=== PATIENT | female | born 1945 | race Caucasian/White ===

== ENCOUNTER 2020-09-15 13:50 | Outpatient (CLI) | payer MEDICARE, BC ==
[~2020-09-15] VITALS: Ht 157.5 cm; Wt 55.3 kg
[2020-09-15 14:31] LABS: TOTAL HEMOGLOBIN 9.8 G/dl (12.0-16.0)
[2020-09-15] MEDS ORDERED: albuterol 2.5 MG/3 ML nebule NEB ONE (15:20)
== END 2020-09-15 23:59 | disposition home or self-care (01) ==
LOC: RT 13:50
PROVIDERS: ATTEND Internal Medicine Pulmonary Disease
DX: R94.2 Abnormal results of pulmonary function studies (principal); J47.9 Bronchiectasis, uncomplicated; J84.112 Idiopathic pulmonary fibrosis
CPT/HCPCS: 85018; 94060; 94727; 94729; 94760

== ENCOUNTER 2021-08-08 06:27 | Day surgery (SDC) | payer MEDICARE, BC ==
[2021-07-29 15:27] LABS: BASOPHILS # (AUTO) 0.1 X10'3 (0-0.2); BASOPHILS % (AUTO) 0.7 % (0-1); EOSINOPHILS # (AUTO) 0.4 X10'3 (0-0.9); EOSINOPHILS % (AUTO) 4.9 % (0-6); LYMPHOCYTES # (AUTO) 1.4 X10'3 (1.1-4.8); LYMPHOCYTES % (AUTO) 15.9 % (21-51); MEAN CORPUSCULAR HEMOGLOBIN 29.7 PG (27.0-31.0); MEAN CORPUSCULAR HGB CONC 33.8 g/dL (33.0-36.5); MEAN CORPUSCULAR VOLUME 88.1 FL (78-98); MEAN PLATELET VOLUME 7.2 FL (7.4-10.4); MONOCYTES # (AUTO) 0.8 X10'3 (0-0.9); NEUTROPHILS # (AUTO) 5.9 X10'3 (1.8-7.7); NEUTROPHILS % (AUTO) 69.5 % (42-75); PRE OP HEMATOCRIT 37.7 % (35.0-45.0); PRE OP HEMOGLOBIN 12.7 g/dL (12.0-16.0); PRE OP PLATELET COUNT 265 X10'3 (140-440); RED BLOOD COUNT 4.28 X10'6 (4.20-5.60); RED CELL DISTRIBUTION WIDTH 14.7 % (11.5-14.5)
[2021-07-29 15:36] LABS: ALBUMIN 3.6 G/DL (3.4-5.0); ALKALINE PHOSPHATASE 114 IU/L (46-116); BLOOD UREA NITROGEN 22 MG/DL (7-18); BUN/CREATININE RATIO 22.7 (6.6-38.0); CALCIUM 9.2 MG/DL (8.5-10.1); CHLORIDE 104 MMOL/L (99-107); CREATININE 0.97 MG/DL (0.40-0.90); PRE OP ALT 15 U/L (30-65); PRE OP ANION GAP 7 (8-16); PRE OP AST 20 U/L (10-37); PRE OP BILIRUB, TOTAL 0.3 MG/DL (0.0-1.0); PRE OP GLUCOSE 109 MG/DL (70-104); PRE OP SODIUM 142 MMOL/L (135-145); TOTAL CARBON DIOXIDE 31.1 MMOL/L (24-32); TOTAL PROTEIN 7.3 G/DL (6.4-8.2); eGFR 56 ML/MIN
[~2021-08-08] VITALS: Ht 162.6 cm; Wt 62.0 kg
[2021-08-08] VITALS (7 sets, daily range): BP systolic 111–123; BP diastolic 62–82
[~2021-08-08 06:27] MED LIST: ALBU8.5H17 INH; DOCU100C40 PO; DYR50C PO; FENT-17 TOP; FLUT1BLS3 INH; FOLI0.4T14 PO; GABA-530 PO; GUAI600T45 PO; HYDR200T80 PO; IRON15TA3 PO; PANT-47 PO; POTA10TA36 PO; SENN8.6T19 PO; VENL75TA4 PO; albuterol 2.5 MG/3 ML nebule NEB PRN; cefazolin/dext.iso 2gm/100ml IV ONE; famotidine 20mg tablet PO ONE; ringers solution, lacted 1,000 ML IV SCH
[2021-08-08] MEDS ORDERED: BUPIVAcaine/PF 2.5mg/ml (0.25%) 10ml vial ONE (06:40)
[2021-08-08] MEDS ORDERED: LIDOcaine 0.5% (5mg/ml) 50ml vial ONE (08:43)
[2021-08-08] MEDS ORDERED: CALC300T4 PO (08:55)
[2021-08-08] MEDS ORDERED: fentaNYL/PF 50MCG/1 ML 2ML syringe ONE (09:34)
[2021-08-08] MEDS ORDERED: midazolam 1 mg/ML 2ml injection ONE (09:35)
[2021-08-08] MEDS ORDERED: propofol inj 20 ML IV ONE (10:36)
--- NOTE | 2021-08-08 10:40 | NUR ---
Received from OR via , accompanied by Anesthesiologist and report given by Anesthesiolgist. PATIENT WAKING UP, DENIES PAIN, V/S WNL, NEUROVASCULAR CHECKS INTACT, DRESSING TO KEN JOSHI, 2OG JUSTIN,.
--- NOTE | 2021-08-08 11:20 | NUR ---
PATIENT A&OX4, DENIES PAIN, V/S WNL, NEUROVASCULAR CHECKS INTACT, DRESSING TO RUE CDI, 2OG DAYANE D/C,. I HAVE REVIEWED D/C INSTRUCTIONS WITH PATIENT AND AND THEY HAVE VERBALIZED UNDERSTANDING. PATIENT D/C HOME WITH ALL BELONGINGS AND GAVE TRANSPORT.
[2021-08-08] MEDS ORDERED: proCHLORperazine 10 MG/2 ml inj IV PRN (11:45)
[2021-08-08] MEDS ORDERED: morphine 2 MG/ML inj. syringe IV PRN (11:45)
[2021-08-08] MEDS ORDERED: HYDROmorphone/PF 0.2 MG/ML SYRINGE IV PRN (11:45)
[2021-08-08] MEDS ORDERED: meperidine/PF 25mg/ml syringe IV PRN (11:45)
[2021-08-08] MEDS ORDERED: acetaminophen 1,000mg/100ml IV 100 ML IV PRN (11:45)
[2021-08-08] MEDS ORDERED: ondansetron/PF 4mg/2ml inj IV PRN (11:45)
[2021-08-08] MEDS ORDERED: ringers solution, lacted 1,000 ML IV SCH (11:45)
== END 2021-08-08 11:20 | disposition home or self-care (01) ==
LOC: PAS 06:27
PROVIDERS: ATTEND Orthopaedic Surgery Hand Surgery
DX: M06.841 Other specified rheumatoid arthritis, right hand (principal); M72.0 Palmar fascial fibromatosis [Dupuytren]; F41.9 Anxiety disorder, unspecified; D64.9 Anemia, unspecified; K21.9 Gastro-esophageal reflux disease without esophagitis; Z20.822 Contact with and (suspected) exposure to COVID-19; Z79.899 Other long term (current) drug therapy; Z96.661 Presence of right artificial ankle joint; Z98.890 Other specified postprocedural states; Z85.3 Personal history of malignant neoplasm of breast
CPT/HCPCS: 26121; 26531; 36415; 80053; 82948; 85025; 93005; J2001; J2250; J2704; J3010; J3490; J7120; L8630; U0003; U0005; Z7506; Z7508; Z7512; A4215; A4618; A7000

== ENCOUNTER 2022-04-07 07:32 | Inpatient (IN) | payer MEDICARE, BC ==
[2022-03-31 16:25] LABS: CLARITY,URINE CLEAR (Clear); COLOR,URINE YELLOW (Yellow); GLUCOSE, URINE NEGATIVE (Neg); KETONES,URINE NEGATIVE (Neg); LEUKOCYTE ESTERASE ,URINE NEGATIVE (Neg); NITRITES, URINE NEGATIVE (Neg); OCCULT BLOOD,URINE NEGATIVE (Neg); PH,URINE 5.5 (4.8-8.0); PROTEIN,URINE NEGATIVE (Neg); UROBILINOGEN,URINE 0.2 E.U/dL (0.2-1.0)
[2022-03-31 16:26] LABS: UA COLLECTION TYPE NON-SPECIFIED
[2022-03-31 16:28] LABS: BASOPHILS # (AUTO) 0.1 X10'3 (0-0.2); BASOPHILS % (AUTO) 0.7 % (0-1); EOSINOPHILS # (AUTO) 0.5 X10'3 (0-0.9); EOSINOPHILS % (AUTO) 5.3 % (0-6); LYMPHOCYTES # (AUTO) 0.9 X10'3 (1.1-4.8); LYMPHOCYTES % (AUTO) 10.9 % (21-51); MEAN CORPUSCULAR HEMOGLOBIN 28.2 PG (27.0-31.0); MEAN CORPUSCULAR HGB CONC 32.3 g/dL (33.0-36.5); MEAN CORPUSCULAR VOLUME 87.3 FL (78-98); MEAN PLATELET VOLUME 7.4 FL (7.4-10.4); MONOCYTES # (AUTO) 0.6 X10'3 (0-0.9); MONOCYTES % (AUTO) 6.7 % (2-12); NEUTROPHILS # (AUTO) 6.6 X10'3 (1.8-7.7); NEUTROPHILS % (AUTO) 76.4 % (42-75); PRE OP HEMATOCRIT 39.3 % (35.0-45.0); PRE OP HEMOGLOBIN 12.7 g/dL (12.0-16.0); PRE OP PLATELET COUNT 247 X10'3 (140-440); RED CELL DISTRIBUTION WIDTH 14.4 % (11.5-14.5)
[2022-03-31 16:42] LABS: ALBUMIN 3.3 G/DL (3.4-5.0); ALBUMIN/GLOBULIN RATIO 0.8 (1.1-1.5); ALKALINE PHOSPHATASE 78 IU/L (46-116); BLOOD UREA NITROGEN 18 MG/DL (7-18); BUN/CREATININE RATIO 29.5 (6.6-38.0); CALCIUM 8.7 MG/DL (8.5-10.1); CHLORIDE 105 MMOL/L (99-107); CREATININE 0.61 MG/DL (0.40-0.90); PRE OP ALT 14 U/L (30-65); PRE OP ANION GAP 6 (8-16); PRE OP AST 22 U/L (10-37); PRE OP BILIRUB, TOTAL 0.3 MG/DL (0.0-1.0); PRE OP GLUCOSE 103 MG/DL (70-104); PRE OP POTASSIUM 3.8 MMOL/L (3.4-5.1); PRE OP SODIUM 141 MMOL/L (135-145); TOTAL CARBON DIOXIDE 29.7 MMOL/L (24-32); TOTAL PROTEIN 7.4 G/DL (6.4-8.2); eGFR > 90 ML/MIN
[~2022-04-07] VITALS: Ht 162.6 cm; Wt 59.6 kg
[2022-04-07] VITALS (29 sets, daily range): BP systolic 103–144; BP diastolic 53–74
[~2022-04-07 07:32] MED LIST changes: +ASPI-1071 PO; +ATOR20TA66 PO; +CALC650T22 PO; +COR3.125T PO; +FERR-28 PO; +HYDR-3973 PO; -IRON15TA3 PO; -POTA10TA36 PO; +RIT100I INJ; +albuterol 2.5 MG/3 ML nebule NEB ONE; -albuterol 2.5 MG/3 ML nebule NEB PRN; +ceFAZolin 1,000 MG in NS 50ML IVPB IV ONE; -cefazolin/dext.iso 2gm/100ml IV ONE
[2022-04-07] MEDS ORDERED: ceFAZolin 2gm in dextrose, iso 50 ML IV ONE (09:05)
[2022-04-07] MEDS ORDERED: vancomycin/NS 1 GM ADD-VANTAGE 250 ML IV ONE (09:10)
[2022-04-07] MEDS ORDERED: albuterol 2.5 MG/3 ML nebule NEB ONE (09:25)
[2022-04-07] MEDS ORDERED: albuterol 2.5 MG/3 ML nebule ONE (09:26)
[2022-04-07] MEDS ORDERED: MIDAZolam 1 MG/ML 5ML VIAL ONE ×2 (09:48→11:17)
[2022-04-07] MEDS ORDERED: fentaNYL/PF 50MCG/1 ML 2ML syringe ONE (09:48)
[2022-04-07] MEDS ORDERED: propofol inj 20 ML IV ONE (11:13)
[2022-04-07] MEDS ORDERED: BUPIVAcaine 0.5% inj/PF 30 ML ONE (11:13)
[2022-04-07] MEDS ORDERED: LIDOcaine 1%/PF 5ML 10 MG/ML VIAL ONE (11:13)
[2022-04-07] MEDS ORDERED: proCHLORperazine 10 MG/2 ml inj IV PRN (11:35)
[2022-04-07] MEDS ORDERED: morphine 2 MG/ML inj. syringe IV PRN ×3 (11:35→12:10)
[2022-04-07] MEDS ORDERED: ringers solution, lacted 1,000 ML IV SCH (11:35)
[2022-04-07] MEDS ORDERED: meperidine/PF 25mg/ml syringe IV PRN ×3 (11:35)
[2022-04-07] MEDS ORDERED: morphine 4 MG/ML inj SYRINge IV PRN (11:35)
[2022-04-07] MEDS ORDERED: ondansetron/PF 4mg/2ml inj IV PRN (11:35)
[2022-04-07] MEDS ORDERED: BUPIVAcaine/PF 7.5mg/ml (0.75%) 10ml vial ONE (12:04)
[2022-04-07] MEDS ORDERED: acetaminophen 325mg tablet PO PRN (12:10)
[2022-04-07] MEDS ORDERED: magnesium 4gm in 100ml NS 100 ML IV PRN (12:10)
[2022-04-07] MEDS ORDERED: HYDROcodone/acetaminophen 5mg/325mg tablet PO PRN (12:10)
[2022-04-07] MEDS ORDERED: magnesium 2GM in 50ml NS 50 ML IV PRN (12:10)
[2022-04-07] MEDS ORDERED: diphenhydrAMINE 25mg capsule PO PRN (12:10)
[2022-04-07] MEDS ORDERED: magnesium hydroxide 30ml (MOM) UD suspension PO PRN (12:10)
[2022-04-07] MEDS ORDERED: magnesium Cl slow-release 64mg tablet PO PRN (12:10)
[2022-04-07] MEDS ORDERED: HYDROcodone/acetaminophen 10/325mg tab PO PRN ×2 (12:10→13:45)
[2022-04-07] MEDS ORDERED: mag hydrox/Alum hydrox/simeth 30ml oral suspension PO PRN (12:10)
--- NOTE | 2022-04-07 12:52 | NUR ---
Received from OR via [facility], accompanied by Anesthesiologist DR MEZA and report given by Anesthesiolgist. PT PRESENTS WITH 18G LEFT HAND, RIGHT FOOT/ANKLE SPLINT CDI, VSS. Addendum: 04/07/22 at 1314 by Shannon Tripp RN, RN Amended: Links added.
[2022-04-07] MEDS ORDERED: albuterol 2.5 MG/3 ML nebule NEB PRN (13:45)
--- NOTE | 2022-04-07 15:12 | NUR ---
Report called to receiving nurse NEREIDA RODRÍGUEZ. Transferred via [facility] WITH TELE #[phone]. PT TAKEN TO ROOM 4009 WITH 1 PT Belongings BAG, BY NEY RODRÍGUEZ. Special Issues communicated to receiving nurse. Addendum: 04/07/22 at 1648 by Shannon rTipp RN RN Amended: Links added.
--- NOTE | 2022-04-07 15:14 | NUR ---
Received report from MARCOS Ortega
--- NOTE | 2022-04-07 16:18 | NUR ---
Called Dr. Walters for clarification if he would like post op antibiotics and fluids, was in surgery and will call back when finished.
[2022-04-07] MEDS: albuterol 2.5 MG/3 ML nebule NEB SCH ×2 (16:51→20:25)
[2022-04-07 16:53] LABS: MAGNESIUM 1.7 MG/DL (1.5-2.4); POTASSIUM 3.9 MMOL/L (3.5-5.1)
--- NOTE | 2022-04-07 18:33 | NUR ---
Patient report given to MARCOS Art and JOVAN Odell
--- NOTE | 2022-04-07 19:33 | NUR ---
Patient in room ORTHO 4009. I have received report from MARCOS Masters and had the opportunity to ask questions and assume patient care.
[2022-04-07] MEDS: K and/or MAG REPLACEMENT MC SCH (20:00)
[2022-04-07] MEDS ORDERED: guaiFENesin ER 600mg tablet PO SCH (20:00)
[2022-04-07] MEDS ORDERED: docusate sod 100mg capsule PO SCH (20:00)
[2022-04-07] MEDS: docusate sod 100mg capsule PO SCH (20:10)
[2022-04-07] MEDS: carVEDilol 3.125mg tablet PO SCH (20:12)
[2022-04-07] MEDS: gabapentin 100mg capsule PO SCH (20:13)
[2022-04-07] MEDS: sennosides 8.6mg tablet PO SCH (20:14)
[2022-04-07] MEDS: calcium carbonate 500mg tablet PO SCH (20:14)
[2022-04-07] MEDS: budesonide 0.5mg/2ml UD nebule IH SCH (20:25)
[2022-04-07] MEDS ORDERED: guaiFENesin 200 MG/10 ML oral syrup UD cup PO SCH (20:31)
[2022-04-07] MEDS: cefazolin/dext.iso 2gm/100ml 100 ML IV SCH (20:47)
[2022-04-08 02:00] VITALS: BP 122/63
[2022-04-08] MEDS: cefazolin/dext.iso 2gm/100ml 100 ML IV SCH (02:40)
[2022-04-08] MEDS: albuterol 2.5 MG/3 ML nebule NEB SCH ×2 (03:07→08:40)
[2022-04-08 06:00] VITALS: BP 129/61
[2022-04-08 06:42] LABS: MAGNESIUM 1.7 MG/DL (1.5-2.4)
--- NOTE | 2022-04-08 06:42 | NUR ---
Problems reprioritized. Patient report given, questions answered & plan of care reviewed with MARCOS Schroeder.
[2022-04-08] MEDS ORDERED: VILANTEROL INH SCH (08:00)
[2022-04-08] MEDS ORDERED: venlafaxine 37.5mg tablet PO SCH (08:00)
[2022-04-08] MEDS: K and/or MAG REPLACEMENT MC SCH (08:00)
[2022-04-08] MEDS ORDERED: pantoprazole 40mg Tablet.DR PO SCH (08:00)
[2022-04-08] MEDS ORDERED: FLUTICASONE INH SCH (08:00)
[2022-04-08] MEDS ORDERED: aspirin 81mg, enteric-coated 1 TAB TABLET.DR PO SCH (08:00)
[2022-04-08] MEDS ORDERED: ferrous sulfate 325mg tablet PO SCH ×2 (08:00→08:23)
[2022-04-08] MEDS ORDERED: atorvastatin 20mg tablet PO SCH (08:00)
[2022-04-08] MEDS ORDERED: hydroxychloroquine 200mg tablet PO SCH (08:00)
[2022-04-08] MEDS ORDERED: folic acid 1mg tablet PO SCH (08:00)
[2022-04-08] MEDS: carVEDilol 3.125mg tablet PO SCH (08:29)
[2022-04-08] MEDS: gabapentin 100mg capsule PO SCH (08:29)
[2022-04-08] MEDS: docusate sod 100mg capsule PO SCH (08:29)
[2022-04-08] MEDS: sennosides 8.6mg tablet PO SCH (08:30)
[2022-04-08] MEDS: calcium carbonate 500mg tablet PO SCH (08:30)
[2022-04-08] MEDS: budesonide 0.5mg/2ml UD nebule IH SCH (08:40)
[2022-04-08] MEDS ORDERED: fentaNYL 50MCG/HOUR patch.TD72 TD SCH (10:00)
[2022-04-08 10:03] VITALS: BP 126/56
[2022-04-08] MEDS ORDERED: gabapentin 100mg capsule PO SCH (12:30)
[2022-05-03] MEDS ORDERED: RITUXIMAB 10 MG/ML IV SCH (10:00)
== END 2022-04-08 11:38 | disposition home or self-care (01) | DRG 497 ==
LOC: PAS IN 07:32 → ORTHO 4S 16:03
PROVIDERS: ADMIT Podiatrist Foot & Ankle Surgery; ATTEND Podiatrist Foot & Ankle Surgery
PROC: 0SHG08Z Insertion of Spacer into Left Ankle Joint, Open Approach (ICD-10-PCS; 2022-04-07)
PROC: 3E0T3BZ Introduction of Anesthetic Agent into Peripheral Nerves and Plexi, Percutaneous Approach (ICD-10-PCS; 2022-04-07)
PROC: 3E0T33Z Introduction of Anti-inflammatory into Peripheral Nerves and Plexi, Percutaneous Approach (ICD-10-PCS; 2022-04-07)
PROC: 0SPG0JZ Removal of Synthetic Substitute from Left Ankle Joint, Open Approach (ICD-10-PCS; principal; 2022-04-07 09:40)
DX: T84.59XA Infection and inflammatory reaction due to other internal joint prosthesis, initial encounter (principal); Y83.8 Other surgical procedures as the cause of abnormal reaction of the patient, or of later complication, without mention of misadventure at the time of the procedure; Y92.89 Other specified places as the place of occurrence of the external cause
CPT/HCPCS: 36415; 73600; 76000; 80053; 81003; 82948; 83735; 84132; 85025; 94640; 94667; 94760; 97161; 97530; A6222; A6223; A6253; A6446; A6449; A7000; C1713; G0378; J0690; J2250; J2704; J3010; J3370; J3490; J7120; S0020

== ENCOUNTER 2022-05-08 16:40 | Emergency (ER) | payer MEDICARE, BC ==
[~2022-05-08] VITALS: Ht 162.6 cm; Wt 58.2 kg
[~2022-05-08 16:40] MED LIST changes: -DYR50C PO; -albuterol 2.5 MG/3 ML nebule NEB ONE; -ceFAZolin 1,000 MG in NS 50ML IVPB IV ONE; -famotidine 20mg tablet PO ONE; -ringers solution, lacted 1,000 ML IV SCH
[2022-05-08 16:59] VITALS: BP 134/71
[2022-05-08] MEDS ORDERED: NIRM1TAB PO (17:05)
== END 2022-05-08 17:51 | disposition home or self-care (01) ==
LOC: ER 16:41
DX: U07.1 COVID-19 (principal); R50.9 Fever, unspecified; M06.9 Rheumatoid arthritis, unspecified; Z85.9 Personal history of malignant neoplasm, unspecified; Z98.890 Other specified postprocedural states; Z79.899 Other long term (current) drug therapy; Z79.82 Long term (current) use of aspirin
CPT/HCPCS: 99283

== ENCOUNTER 2024-09-09 06:58 | Day surgery (SDC) | payer MEDICARE, BC ==
[~2024-09-09] VITALS: Ht 154.9 cm; Wt 56.8 kg
[2024-09-09] VITALS (14 sets, daily range): BP systolic 109–162; BP diastolic 41–115; PULSE 73–98; RESP 12–30; O2SAT 87–100
[~2024-09-09 06:58] MED LIST changes: +NIRM1TAB PO
[2024-09-09] MEDS ORDERED: ASPI-611 PO (08:05)
[2024-09-09] MEDS ORDERED: IPRA4AER IH (08:10)
[2024-09-09] MEDS ORDERED: PRED5TAB PO (08:13)
[2024-09-09] MEDS ORDERED: ERGO400C PO (08:15)
[2024-09-09] MEDS ORDERED: EPIN0.3A3 (08:18)
[2024-09-09] MEDS ORDERED: FOLI1TAB27 PO (08:18)
[2024-09-09] MEDS ORDERED: LIDOcaine 2% Viscous 15ml cup ONE (08:23)
[2024-09-09] MEDS ORDERED: MIDAZolam 1 MG/ML 5ML VIAL ONE (08:26)
[2024-09-09] MEDS ORDERED: fentaNYL/PF 50MCG/1 ML 2ML syringe ONE ×3 (08:26→10:15)
[2024-09-09] MEDS ORDERED: simethicone 40mg/0.6ml oral drops 30ml ONE (08:52)
[2024-09-09] MEDS ORDERED: ondansetron/PF 4mg/2ml inj IV PRN (08:55)
[2024-09-09] MEDS ORDERED: labetalol 20mg/4ml (5mg/ml) syringe IV PRN (08:55)
[2024-09-09] MEDS ORDERED: ringers solution, lacted 1,000 ML IV SCH (08:55)
[2024-09-09] MEDS ORDERED: fentaNYL/PF 50MCG/1 ML 2ML syringe IV PRN ×2 (08:55)
[2024-09-09] MEDS ORDERED: morphine 4 MG/ML inj SYRINge IV PRN (08:55)
[2024-09-09] MEDS ORDERED: hydrALAZINE 20mg/ml inj. IV PRN (08:55)
[2024-09-09] MEDS ORDERED: morphine 2 MG/ML inj. syringe IV PRN (08:55)
[2024-09-09] MEDS ORDERED: sevoflurane 250ml liquid IH ONE (10:05)
[2024-09-09] MEDS ORDERED: propofol inj 20 ML IV ONE (10:15)
[2024-09-09] MEDS ORDERED: dexamethasone sod phosphate 4mg/ml inj. ONE (10:27)
[2024-09-09] MEDS: ipratropium/albuterol 3ml nebule NEB ONE (11:12)
== END 2024-09-09 11:43 | disposition home or self-care (01) ==
LOC: GI LAB 06:58
PROVIDERS: ATTEND Surgery
DX: K44.9 Diaphragmatic hernia without obstruction or gangrene (principal); I10 Essential (primary) hypertension; E78.5 Hyperlipidemia, unspecified; J44.9 Chronic obstructive pulmonary disease, unspecified; K21.9 Gastro-esophageal reflux disease without esophagitis; F41.9 Anxiety disorder, unspecified; F32.A Depression, unspecified; G62.9 Polyneuropathy, unspecified; M06.9 Rheumatoid arthritis, unspecified; M19.90 Unspecified osteoarthritis, unspecified site; Z79.82 Long term (current) use of aspirin; Z79.2 Long term (current) use of antibiotics; Z79.891 Long term (current) use of opiate analgesic; Z79.899 Other long term (current) drug therapy; Z90.13 Acquired absence of bilateral breasts and nipples; Z90.49 Acquired absence of other specified parts of digestive tract; Z96.661 Presence of right artificial ankle joint; Z98.890 Other specified postprocedural states; Z82.3 Family history of stroke
CPT/HCPCS: 43235; 94640; A4618; A4620; G0500; J0330; J1100; J2250; J2405; J2704; J3010; J7030; J7120; Z7506; Z7512; Z7610; 94760; 99152; J0360; J2270; J3490

== ENCOUNTER → 2024-12-01 | Outpatient (CLI) | payer MEDICARE, BC ==
[~2024-12-01] MED LIST changes: -ASPI-1071 PO; +ASPI-611 PO; +ATR0.5NEB NEB; +AZIT500T9 PO; +CARV3.1232 PO; -COR3.125T PO; +EPIN0.3A3; +ERGO400C PO; -FERR-28 PO; -FLUT1BLS3 INH; -FOLI0.4T14 PO; +FOLI1TAB27 PO; -GUAI600T45 PO; +IPRA4AER IH; -NIRM1TAB PO; +PRED5TAB PO; -RIT100I INJ
[2024-12-01 14:31] LABS: BASOPHILS # (AUTO) 0.1 X10'3 (0-0.2); BASOPHILS % (AUTO) 0.4 % (0-1); EOSINOPHILS % (AUTO) 0.2 % (0-6); HEMOGLOBIN 10.8 g/dl (12.0-16.0); LYMPHOCYTES % (AUTO) 9.4 % (21-51); MEAN PLATELET VOLUME 7.1 FL (7.4-10.4); MONOCYTES # (AUTO) 1.7 X10'3 (0-0.9); MONOCYTES % (AUTO) 8.1 % (2-12); NEUTROPHILS # (AUTO) 17.2 X10'3 (1.8-7.7); NEUTROPHILS % (AUTO) 81.9 % (42-75); PLATELET COUNT 293 X10'3 (140-440)
[2024-12-01 14:32] LABS: HEMATOCRIT 33.6 % (35.0-45.0); MEAN CORPUSCULAR HEMOGLOBIN 22.6 PG (27.0-31.0); MEAN CORPUSCULAR VOLUME 70.7 FL (78-98); RED BLOOD COUNT 4.75 X10'6 (4.20-5.60)
== END | disposition home or self-care (01) ==
LOC: LAB 12:39 → EDSTATUS 12-09 08:30
PROVIDERS: ATTEND Surgery
DX: Z01.818 Encounter for other preprocedural examination (principal); I44.7 Left bundle-branch block, unspecified; K44.9 Diaphragmatic hernia without obstruction or gangrene
CPT/HCPCS: 36415; 85025; 93005